=== PATIENT | female | born 1940 | race Caucasian/White ===

== ENCOUNTER 2023-08-24 14:47 | Emergency (ER) | payer OTHER, MEDICARE, SELFPAY ==
[2023-08-24 14:50] VITALS: BP 162/68; PULSE 66; RESP 18; TEMP 36.7; O2SAT 93; BMI 32.9
--- NOTE | 2023-08-24 14:51 | XRR_ITS ---
PROCEDURE INFORMATION: Exam: XR Chest Exam date and time: 08/24/2023 2:54 PM Age: 83 years old Clinical indication: Cough and dyspnea; Additional info: Dyspnea/cough TECHNIQUE: Imaging protocol: Radiologic exam of the chest. Views: 1 view. COMPARISON: CR XR chest 2V* [id number] 12/24/2016 4:32 PM FINDINGS: Lungs: Minimal left lateral basilar pleuroparenchymal opacity. Pleural spaces: See above. No pneumothorax. Heart/Mediastinum: A hiatal hernia is now seen. No cardiomegaly. Bones/joints: Unremarkable. XR/XR chest 1V portable [id number] IMPRESSION: Minimal left lateral basilar pleuroparenchymal opacity.
--- NOTE | 2023-08-24 14:54 | ED_ITS ---
Documented by User: Edson Dominique DO 08/25/23 07:48 HPI - Weakness 2 General: Chief complaint: Weakness Stated complaint: weakness Time Seen by Provider: 08/24/23 14:51 Source: patient Mode of arrival: ambulatory History of Present Illness: 83-year-old female presents emergency ro om via EMS with complaints of generalized weakness. She states that she was playing bridge suddenly had an episode of weakness where she seemed to stare off into space. She thinks it lasted about 5 to 10 minutes she cannot recall what happened on arrival EMS states she was responsive and a GCS of 15 she is awake and alert and oriented now follow simple commands bedside NIH scoring is 0. She does tell me she has had a stroke in the past. She is on clopidogrel. MD Complaint: generalized weakness Onset (ago): minute(s) Relieving factors: none Exacerbating factors: none Associated symptoms: Denies chest pain, chills, confusion, melena, decreased appetite, diaphoresis, dysuria, easy bruising, fever(s), headache(s), myalgias, nausea, rash, short of breath, syncope or vomiting Review of Systems 2 Const: Denies: fever(s), chills or diaphoresis Card: Denies: chest pain or syncope Resp: Denies: dyspnea GI: Denies: abdominal pain, nausea, vomiting or melena : Denies: dysuria, urinary frequency or urinary urgency Musc: Denies: neck pain or back pain Skin/Breast: Denies: rash Neuro: Denies: headache(s) or confusion Zafar/Lymph: Denies: easy bruising Physical Exam 2 Const: COMMON NORMALS: no acute distress GENERAL APPEARANCE: cooperative and comfortable ORIENTATION/CONSCIOUSNESS: Yes awake, Yes oriented to person, Yes oriented to place and Yes oriented to time HENMT: COMMON NORMALS: normocephalic, atraumatic and hearing grossly normal bilaterally HEAD & SCALP: normocephalic and atraumatic Resp: COMMON NORMALS: normal respiratory effort, No retractions, No use of accessory muscles and clear to auscultation bilaterally AUSCULTATION: clear to auscultation bilaterally Cardio: COMMON NORMALS: regular rate, regular rhythm and No murmurs present (Cardio) RATE: regular rate RHYTHM: regular rhythm GI: COMMON NORMALS: Soft to palpation and No hepatosplenomegaly present A USCULTATION: Yes normoactive bowel sounds PALPATION: Yes Soft to palpation, No Tenderness to palpation present (GI), No Guarding due to palpation present (GI) and Yes No hepatosplenomegaly present Extremity: COMMON NORMALS: normal to inspection, capillary refill normal, no clubbing, cyanosis or edema, no calf tenderness and no pedal edema Neuro: SENSORIUM/ORIENTATION: Yes oriented to person, Yes oriented to place and Yes oriented to time Skin: COMMON NORMALS: no rashes or lesions noted GENERAL SKIN EXAM: no rashes or lesions noted Course 2 Vital Signs: Vital signs: Vital Signs Temperature 98.0 F 08/24/23 14:50 Pulse Rate 95 08/24/23 19:58 Respiratory Rate 18 08/24/23 19:58 Blood Pressure 165/83 08/24/23 19:58 Pulse Oximetry 98 08/24/23 19:58 Oxygen Delivery Me thod Room Air 08/24/23 14:50 [facility] - Weakness Medical Decision Making Care signed out to Dr. Babb at change of shift. See final notes for diagnosis and disposition. I have discussed the patient's case with the off going physician <Dr. Dominique > and I have assumed care of the patient. We have discussed the current lab/radiographic results that have been resulted and the pending tests. I have reevaluated the patient I discussed the patient's laboratory findings with her and advised her that I will prescribe antibiotics for her urinary tract infection. And have her follow-up with her primary care provider. Lab Data 08/24/23 15:05 08/24/23 15:05 Radiology Impressions Chest X-Ray 08/24/23 14:51 IMPRESSION: Minimal left lateral basilar pleuroparenchymal opacity. Head CT 08/24/23 15:50 IMPRESSION: 1. No acute intracranial pathology demonstrated by CT. 2. 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 Laboratory Results WBC 6.73 10^3/uL (3.29-11.43) 08/24/23 15:05 RBC 4.31 10^6/uL (3.85-5.65) 08/24/23 15:05 Hgb 12.90 g/dL (11.27-16.99) 08/24/23 15:05 Hct 39.7 % (36-47) 08/24/23 15:05 MCV 92.1 fl (85-98) 08/24/23 15:05 MCH 29.9 pg (27-33) 08/24/23 15:05 MCHC 32.5 g/dL (30-55) 08/24/23 15:05 RDW 13.0 % (12.1-15.1) 08/24/23 15:05 Plt Count 208 10^3/cmm (157-399) 08/24/23 15:05 MPV 9.6 fL (7.4-10.4) 08/24/23 15:05 Neut % (Auto) 58.1 % 08/24/23 15:05 Lymph % (Auto) 28.4 % 08/24/23 15:05 [place] % (Auto) 10.0 % 08/24/23 15:05 Eos % (Auto) 2.8 % 08/24/23 15:05 Baso % (Auto) 0.6 % 08/24/23 15:05 Neut # (Auto) 3.91 10^3/uL (1.8-7.7) 08/24/23 15:05 Lymph # (Auto) 1.9 10^3/uL (0.8-4.8) 08/24/23 15:05 [place] # (Auto) 0.7 10^3/uL (0.2-0.9) 08/24/23 15:05 Eos # (Auto) 0.2 10^3/uL (0.0-0.8) 08/24/23 15:05 Baso # (Auto) 0.0 10^3/uL (0.0-0.1) 08/24/23 15:05 Nucleated RBC % (auto) 0 % 08/24/23 15:05 Nucleated RBCs # 0.0 /100WBC 08/24/23 15:05 Sodium 140 mmol/L (136-145) 08/24/23 15:05 Potassium 4.2 mmol/L (3.5-5.1) 08/24/23 15:05 Chloride 103 mmol/L (98-107) 08/24/23 15:05 Carbon Dioxide 27 mmol/L (22-29) 08/24/23 15:05 Anion Gap 14.2 (5-19) 08/24/23 15:05 BUN 16 mg/dL (8-23) 08/24/23 15:05 Creatinine 0.9 mg/dL (0.5-0.9) 08/24/23 15:05 GFR Calculation Not Reportable 08/24/23 15:05 Glucose 147 mg/dL (65-115) H 08/24/23 15:05 Calculated Osmolality 294 mOsm/kg (285-295) 08/24/23 15:05 Calcium 9.5 mg/dL (8.5-10.5) 08/24/23 15:05 Total Bilirubin 0.4 mg/dL (0.15-1.2) 08/24/23 15:05 AST 20 U/L (0-32) 08/24/23 15:05 ALT 18 U/L (0-33) 08/24/23 15:05 Alkaline Phosphatase 83 U/L (35-105) 08/24/23 15:05 Troponin T Baseline 10 ng/L (0-10) 08/24/23 15:05 Troponin T 120 Minute 8.22 ng/L (0-10) 08/24/23 18:24 Delta Troponin T -1.78 ABS# (0-10) L 08/24/23 18:24 Total Protein 6.7 g/dL (6.6-8.7) 08/24/23 15:05 Albumin 4.0 g/dL (3.5-5.2) 08/24/23 15:05 Globulin 2.7 g/dL (1.3-4.6) 08/24/23 15:05 Urine Color Yellow (Yellow) 08/24/23 15:41 Urine Appearance Cloudy (CLEAR) A 08/24/23 15:41 Urine pH 5 (5-7) 08/24/23 15:41 Ur Specific Vil[place] 1.025 (1.005-1.030) 08/24/23 15:41 Urine Protein Neg (Negative) 08/24/23 15:41 Urine Glucose (UA) Norm (Normal) 08/24/23 15:41 Urine Ketones Negative (Negative) 08/24/23 15:41 Urine Blood 2+ (Negative) H 08/24/23 15:41 Urine Nitrate Negative (Negative) 08/24/23 15:41 Urine Bilirubin Neg (Negative) 08/24/23 15:41 Urine Urobilinogen 1 mg/dL (Negative) H 08/24/23 15:41 Ur Leukocyte Esterase 2+ (Negative) H 08/24/23 15:41 Urine RBC 0-4 /hpf (0-2) H 08/24/23 15:41 Urine WBC 25-40 /hpf (0-5) H 08/24/23 15:41 Ur Squamous Epith Cells 5-10 /hpf (0-5) H 08/24/23 15:41 Ur Transition Epith Cell 0-4 /hpf 08/24/23 15:41 Amorphous Sediment Not Reportable 08/24/23 15:41 Urine Bacteria 1+ /hpf (NONE) H 08/24/23 15:41 Hyaline Casts 15-25 /lpf H 08/24/23 15:41 Urine Mucus 2+ /hpf 08/24/23 15:41 Discharge Plan Discharge Patient Disposition: Home Clinical Impression: Acute UTI, Pre-syncope Condition: Stable Prescriptions: New Macrobid 100 mg capsule 100 mg PO Q12H 7 Days Qty: 14 0RF Rx Instructions: must administer with a meal/food No Action atorvastatin 80 mg tablet 80 mg PO QPM carvedilol 6.25 mg tablet 6.25 mg PO BID trazodone 50 mg tablet 50 mg PO BEDTIME clopidogrel 75 mg tablet 75 mg PO DAILY Aspir-81 81 mg Tablet,Delayed Release (Dr/Ec) 81 mg PO DAILY Nitrostat 0.4 mg Tablet, Sublingual 0.4 mg SUBLINGUAL Q5M PRN (Reason: Chest Pain) Rx Instructions: do not exceed 3 doses per episode omeprazole 20 mg Capsule,Delayed Release(Dr/Ec) 20 mg PO DAILY ramipril 5 mg capsule 5 mg PO DAILY Vitamin D3 25 mcg (1,000 unit) Capsule 25 mcg PO DAILY Zyrtec 10 mg Capsule 10 mg PO DAILY Fish Oil 100-160-1,000 mg Capsule 1 cap PO DAILY calcium carb,glucon-vitamin D2 250 mg-2.5 mcg (100 unit) Tablet 1 tab PO DAILY Discharge Orders: Discharge ED (Routine); Ordered 08/24/23 Ordered By: Velasquez Babb Referrals: Kasi Anaya, [employer]ZING MACHINE AND DRIER OPERATOR-C [Nurse Practitioner] - Discharge Diet: Usual diet Discharge Activity: Resume usual activity Patient Instructions: Opioid Safety, Pain Management Activity Restrictions/Additional Instructions: Activity Restrictions/Additional Instructions: Thank you for choosing [facility] for your healthcare needs today. Please realize that you were seen in the Emergency Department and that we are providing you with an emergency medical screening exam and this may not be a complete and all inclusive of all the testing and or medical work-up that you may need to determine your ailment or severity of your illness. It is very important that you follow-up as instructed with your Primary care provider or Specialist for additional evaluation and to discuss your medical treatment plan. You may return to the Emergency Department should you have concerns or if your condition changes or worsens in any way. Coding Level of Care Code ED Color Making Supervisor for Hilda Jana NIH stroke score NIHSS Level Of Consciousness - 1a: 0 Level Of Consciousness Questions - 1b: Both Correct Level Of Consciousness Commands - 1c: Both Correct Best Gaze - 2: Normal Visual Sinclair - 3: No Visual Loss Facial Palsy - 4: Normal Motor Arm Right - 5: No Drift Motor Arm Left - 5: No Drift Motor Leg Right - 6: No Drift Motor Leg Left - 6: No Drift Limb Ataxia - 7: Absent Sensory - 8: Normal Best Language - 9: No Aphasia Dysarthia - 10: Normal Extinction And Inattention - 11: 0 Score Total Score: 0 Documented by User: Velasquez Babb MD 08/24/23 19:24 HPI - Weakness 2 General: Chief complaint: Weakness Stated complaint: weakness Time Seen by Provider: 08/24/23 14:51 Course 2 Vital Signs: Vital signs: Vital Signs Temperature 98.0 F 08/24/23 14:50 Pulse Rate 95 08/24/23 19:58 Respiratory Rate 18 08/24/23 19:58 Blood Pressure 165/83 08/24/23 19:58 Pulse Oximetry 98 08/24/23 19:58 Oxygen Delivery Me thod Room Air 08/24/23 14:50 MDM - Weakness Medical Decision Making I have discussed the patient's case with the off going physician <Dr. Dominique > and I have assumed care of the patient. We have discussed the current lab/radiographic results that have been resulted and the pending tests. I have reevaluated the patient I discussed the patient's laboratory findings with her and advised her that I will prescribe antibiotics for her urinary tract infection. And have her follow-up with her primary care provider. Medical Records I reviewed the patient's medical records. Lab Data I reviewed the patient's lab results. 08/24/23 15:05 08/24/23 15:05 Radiology Impressions Chest X-Ray 08/24/23 14:51 IMPRESSION: Minimal left lateral basilar pleuroparenchymal opacity. Head CT 08/24/23 15:50 IMPRESSION: 1. No acute intracranial pathology demonstrated by CT. 2. 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 Laboratory Results WBC 6.73 10^3/uL (3.29-11.43) 08/24/23 15:05 RBC 4.31 10^6/uL (3.85-5.65) 08/24/23 15:05 Hgb 12.90 g/dL (11.27-16.99) 08/24/23 15:05 Hct 39.7 % (36-47) 08/24/23 15:05 MCV 92.1 fl (85-98) 08/24/23 15:05 MCH 29.9 pg (27-33) 08/24/23 15:05 MCHC 32.5 g/dL (30-55) 08/24/23 15:05 RDW 13.0 % (12.1-15.1) 08/24/23 15:05 Plt Count 208 10^3/cmm (157-399) 08/24/23 15:05 MPV 9.6 fL (7.4-10.4) 08/24/23 15:05 Neut % (Auto) 58.1 % 08/24/23 15:05 Lymph % (Auto) 28.4 % 08/24/23 15:05 [place] % (Auto) 10.0 % 08/24/23 15:05 Eos % (Auto) 2.8 % 08/24/23 15:05 Baso % (Auto) 0.6 % 08/24/23 15:05 Neut # (Auto) 3.91 10^3/uL (1.8-7.7) 08/24/23 15:05 Lymph # (Auto) 1.9 10^3/uL (0.8-4.8) 08/24/23 15:05 [place] # (Auto) 0.7 10^3/uL (0.2-0.9) 08/24/23 15:05 Eos # (Auto) 0.2 10^3/uL (0.0-0.8) 08/24/23 15:05 Baso # (Auto) 0.0 10^3/uL (0.0-0.1) 08/24/23 15:05 Nucleated RBC % (auto) 0 % 08/24/23 15:05 Nucleated RBCs # 0.0 /100WBC 08/24/23 15:05 Sodium 140 mmol/L (136-145) 08/24/23 15:05 Potassium 4.2 mmol/L (3.5-5.1) 08/24/23 15:05 Chloride 103 mmol/L (98-107) 08/24/23 15:05 Carbon Dioxide 27 mmol/L (22-29) 08/24/23 15:05 Anion Gap 14.2 (5-19) 08/24/23 15:05 BUN 16 mg/dL (8-23) 08/24/23 15:05 Creatinine 0.9 mg/dL (0.5-0.9) 08/24/23 15:05 GFR Calculation Not Reportable 08/24/23 15:05 Glucose 147 mg/dL (65-115) H 08/24/23 15:05 Calculated Osmolality 294 mOsm/kg (285-295) 08/24/23 15:05 Calcium 9.5 mg/dL (8.5-10.5) 08/24/23 15:05 Total Bilirubin 0.4 mg/dL (0.15-1.2) 08/24/23 15:05 AST 20 U/L (0-32) 08/24/23 15:05 ALT 18 U/L (0-33) 08/24/23 15:05 Alkaline Phosphatase 83 U/L (35-105) 08/24/23 15:05 Troponin T Baseline 10 ng/L (0-10) 08/24/23 15:05 Troponin T 120 Minute 8.22 ng/L (0-10) 08/24/23 18:24 Delta Troponin T -1.78 ABS# (0-10) L 08/24/23 18:24 Total Protein 6.7 g/dL (6.6-8.7) 08/24/23 15:05 Albumin 4.0 g/dL (3.5-5.2) 08/24/23 15:05 Globulin 2.7 g/dL (1.3-4.6) 08/24/23 15:05 Urine Color Yellow (Yellow) 08/24/23 15:41 Urine Appearance Cloudy (CLEAR) A 08/24/23 15:41 Urine pH 5 (5-7) 08/24/23 15:41 Ur Specific [place] 1.025 (1.005-1.030) 08/24/23 15:41 Urine Protein Neg (Negative) 08/24/23 15:41 Urine Glucose (UA) Norm (Normal) 08/24/23 15:41 Urine Ketones Negative (Negative) 08/24/23 15:41 Urine Blood 2+ (Negative) H 08/24/23 15:41 Urine Nitrate Negative (Negative) 08/24/23 15:41 Urine Bilirubin Neg (Negative) 08/24/23 15:41 Urine Urobilinogen 1 mg/dL (Negative) H 08/24/23 15:41 Ur Leukocyte Esterase 2+ (Negative) H 08/24/23 15:41 Urine RBC 0-4 /hpf (0-2) H 08/24/23 15:41 Urine WBC 25-40 /hpf (0-5) H 08/24/23 15:41 Ur Squamous Epith Cells 5-10 /hpf (0-5) H 08/24/23 15:41 Ur Transition Epith Cell 0-4 /hpf 08/24/23 15:41 Amorphous Sediment Not Reportable 08/24/23 15:41 Urine Bacteria 1+ /hpf (NONE) H 08/24/23 15:41 Hyaline Casts 15-25 /lpf H 08/24/23 15:41 Urine Mucus 2+ /hpf 08/24/23 15:41 All radiology interpretation(s) finalized by discharge Discharge Plan Discharge Patient Disposition: Home Clinical Impression: Acute UTI, Pre-syncope Condition: Stable Prescriptions: New Macrobid 100 mg capsule 100 mg PO Q12H 7 Days Qty: 14 0RF Rx Instructions: must administer with a meal/food No Action atorvastatin 80 mg tablet 80 mg PO QPM carvedilol 6.25 mg tablet 6.25 mg PO BID trazodone 50 mg tablet 50 mg PO BEDTIME clopidogrel 75 mg tablet 75 mg PO DAILY Aspir-81 81 mg Tablet,Delayed Release (Dr/Ec) 81 mg PO DAILY Nitrostat 0.4 mg Tablet, Sublingual 0.4 mg SUBLINGUAL Q5M PRN (Reason: Chest Pain) Rx Instructions: do not exceed 3 doses per episode omeprazole 20 mg Capsule,Delayed Release(Dr/Ec) 20 mg PO DAILY ramipril 5 mg capsule 5 mg PO DAILY Vitamin D3 25 mcg (1,000 unit) Capsule 25 mcg PO DAILY Zyrtec 10 mg Capsule 10 mg PO DAILY Fish Oil 100-160-1,000 mg Capsule 1 cap PO DAILY calcium carb,glucon-vitamin D2 250 mg-2.5 mcg (100 unit) Tablet 1 tab PO DAILY Discharge Orders: Discharge ED (Routine); Ordered 08/24/23 Ordered By: Velasquez Babb Referrals: Kasi Anaya, SIZING MACHINE AND DRIER OPERATOR-C [Nurse Practitioner] - Discharge Diet: Usual diet Discharge Activity: Resume usual activity Patient Instructions: Opioid Safety, Pain Management Activity Restrictions/Additional Instructions: Activity Restrictions/Additional Instructions: Thank you for choosing [facility] for your healthcare needs today. Please realize that you were seen in the Emergency Department and that we are providing you with an emergency medical screening exam and this may not be a complete and all inclusive of all the testing and or medical work-up that you may need to determine your ailment or severity of your illness. It is very important that you follow-up as instructed with your Primary care provider or Specialist for additional evaluation and to discuss your medical treatment plan. You may return to the Emergency Department should you have concerns or if your condition changes or worsens in any way. Coding Level of Care Code ED Color Making Supervisor for Hilda Bates NIH stroke score Score Total Score: 0
--- NOTE | 2023-08-24 15:08 | ECG_ITS ---
[facility] Test Date: 2023-08-24 Pat Name: Angy Rivers Department: Room: Gender: Female Director Of Primary: : 1940 Requested By: Edson Gonzalez Order Number: [id number] Hanane MD: Chico Lloyd M.D. Measurements Intervals [place] Rate: 65 P: 40 [place]: 204 QRS: 6 QRSD: 73 T: 70 QT: 379 QTc: 395 Interpretive Statements SINUS RHYTHM ANTEROSEPTAL MYOCARDIAL INFARCTION , OF INDETERMINATE AGE [40+ ms Q WAVE IN V1-V4] Compared to ECG 12/24/2016 23:33:23 No significant changes Electronically Signed On 08-24-2023 18:42:59 CDT by Chico Lloyd M.D. [id number]
[2023-08-24 15:10] LABS: Basophils % 0.6 %; Eosinophils # 0.2 10^3/uL (0.0-0.8); Eosinophils % 2.8 %; Hematocrit 39.7 % (36-47); Lymphocytes # 1.9 10^3/uL (0.8-4.8); Lymphocytes % 28.4 %; Mean Corpuscular HGB Conc 32.5 g/dL (30-55); Mean Corpuscular Hemoglobin 29.9 pg (27-33); Mean Corpuscular Volume 92.1 fl (85-98); Mean Platelet Volume 9.6 fL (7.4-10.4); Monocytes # 0.7 10^3/uL (0.2-0.9); Neutrophils # 3.91 10^3/uL (1.8-7.7); Neutrophils % 58.1 %; Nucleated Red Blood Cells % 0 %; Platelet Count 208 10^3/cmm (157-399); Red Blood Count 4.31 10^6/uL (3.85-5.65); White Blood Count 6.73 10^3/uL (3.29-11.43)
[2023-08-24 15:27] VITALS: BP 162/68; PULSE 69
[2023-08-24 15:39] LABS: Troponin(5th) Baseline 10 ng/L (0-10)
[2023-08-24 15:42] LABS: Alanine Aminotransferase 18 U/L (0-33); Alkaline Phosphatase 83 U/L (35-105); Anion Gap 14.2 (5-19); Aspartate Amino Transferase 20 U/L (0-32); Blood Urea Nitrogen 16 mg/dL (8-23); Calcium 9.5 mg/dL (8.5-10.5); Carbon Dioxide 27 mmol/L (22-29); Chloride 103 mmol/L (98-107); Creatinine Clr Calc Pharmacy 45.2485; Globulin 2.7 g/dL (1.3-4.6); Glucose 147 mg/dL (65-115); Osmolality Calculated 294 mOsm/kg (285-295); Potassium 4.2 mmol/L (3.5-5.1); Sodium 140 mmol/L (136-145); Total Bilirubin 0.4 mg/dL (0.15-1.2); Total Protein 6.7 g/dL (6.6-8.7)
--- NOTE | 2023-08-24 15:50 | CTR_ITS ---
PROCEDURE INFORMATION: Exam: CT Head Without Contrast Exam date and time: 08/24/2023 4:04 PM Age: 83 years old Clinical indication: Altered mental status/memory loss; Additional info: AMS TECHNIQUE: Imaging protocol: Computed tomography of the head without contrast. Radiation optimization: All CT scans at this facility use at least one of these dose optimization techniques: automated exposure control; mA and/or kV adjustment per patient size (includes targeted exams where dose is matched to clinical indication); or iterative reconstruction. COMPARISON: CT head wo con* [id number] 12/24/2016 4:58 PM RADIATION DOSE METRICS: Total DLP (mGy-cm): 1072.99 FINDINGS: Brain: Chronic encephalomalacia left frontal lobe. There are global involutional changes of the brain which are in keeping with the patient's age. Periventricular hypodensities are nonspecific but most likely reflect chronic microvascular ischemic disease. No acute intracranial hemorrhage, mass effect or midline shift. No abnormal extra-axial fluid collections are identified. Cerebral ventricles: Ex vacuo enlargement of the frontal horn left lateral ventricle. Paranasal sinuses: There is mild sinus mucosal disease, with no air-fluid level identified. Mastoid air cells: There is no mastoid effusion detected. Bones/joints: Unremarkable. No acute fracture. Soft tissues: Unremarkable. Vasculature: Atherosclerotic vascular disease is noted at the level of the skull base. CT/CT head wo con* [id number] IMPRESSION: 1. No acute intracranial pathology demonstrated by CT. 2. 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
[2023-08-24 16:12] LABS: Urine Appearance Cloudy (CLEAR); Urine Color Yellow (Yellow)
[2023-08-24 16:13] LABS: Add Urine Microscopic? YES; Bilirubin Urine Neg (Negative); Blood Urine 2+ (Negative); Glucose Urine UA Norm (Normal); Ketones Urine Negative (Negative); Leukocyte Esterase Urine 2+ (Negative); Nitrate Urine Negative (Negative); Protein Urine Neg (Negative); Specific Gravity, Urine 1.025 (1.005-1.030); Urobilinogen Urine 1 mg/dL (Negative); pH Urine 5 (5-7)
[2023-08-24 16:18] LABS: Bacteria Urine 1+ /hpf; Mucus Urine 2+ /hpf; RBC Urine 0-4 /hpf (0-2); Transitional Epi Cells Urine 0-4 /hpf; WBC Urine 25-40 /hpf (0-5)
[2023-08-24 16:19] LABS: Add Urine Culture? Yes; Hyaline Casts Urine 15-25 /lpf
--- NOTE | 2023-08-24 17:33 | ECG_ITS ---
[facility] Test Date: 2023-08-24 Pat Name: Angy Rivers Department: Room: Gender: Female Chocolatier: : 1940 Requested By: Edson Gonzalez Order Number: [id number] Hanane MD: Chico Lloyd M.D. Measurements Intervals [place] Rate: 69 P: 29 TN: 208 QRS: -9 QRSD: 83 T: 74 QT: 386 QTc: 415 Interpretive Statements SINUS RHYTHM POSSIBLE ANTERIOR MYOCARDIAL INFARCTION , OF INDETERMINATE AGE [30 ms Q WAVE IN V3/V4, OR R < 0.2 mV IN V4] INFERIOR MYOCARDIAL INFARCTION , PROBABLY OLD [40+ ms Q WAVE AND/OR ST/T ABNORMALITY IN II/aVF] Compared to ECG 08/24/2023 15:08:27 No significant changes Electronically Signed On 08-24-2023 18:49:54 CDT by Chico Lloyd M.D. [id number]
[2023-08-24 18:41] VITALS: BP 153/74; PULSE 65
[2023-08-24] MEDS: cefTRIAXone 1,000 MG in sodium chloride 0.9% (plus) 50 ML 100 MG IV (18:48)
[2023-08-24 19:07] LABS: Troponin 5 2HR 8.22 ng/L (0-10)
[2023-08-24 19:09] VITALS: BP 146/73; PULSE 66; RESP 18; O2SAT 97
[2023-08-24 19:13] LABS: Troponin 5 2HR Delta -1.78 ABS# (0-10)
[2023-08-24 19:58] VITALS: BP 165/83; PULSE 95; RESP 18; O2SAT 98
== END 2023-08-24 19:59 | disposition home or self-care (01) ==
PROVIDERS: Family Medicine; Emergency Provider Internal Medicine
DX: R55 Syncope and collapse (principal); N39.0 Urinary tract infection, site not specified; Z79.02 Long term (current) use of antithrombotics/antiplatelets; Z79.82 Long term (current) use of aspirin
CPT/HCPCS: 36415; 70450; 71045; 80053; 81001; 84484; 85025; 87040; 87086; 93005; 96365; 99285; J0696

== ENCOUNTER 2025-03-06 14:15 | Emergency (ER) | payer MEDICARE, OTHER, SELFPAY ==
--- NOTE | 2025-03-06 14:17 | ECG_ITS ---
[facility] Test Date: 2025-03-06 Pat Name: Angy Rivers Department: Room: Gender: Female Electronics Maintenance Technician: : 1940 Requested By: Kendall Ferrari Order Number: [id number] Hanane MD: Chico Lloyd M.D. Measurements Intervals [place] Rate: 73 P: 59 SD: 201 QRS: 8 QRSD: 82 T: 84 QT: 374 QTc: 413 Interpretive Statements SINUS RHYTHM ANTEROSEPTAL MYOCARDIAL INFARCTION , OF INDETERMINATE AGE [40+ ms Q WAVE IN V1-V4] Compared to ECG 08/24/2023 17:33:26 No significant changes Electronically Signed On 03-06-2025 16:52:14 CDT by Chico Lloyd M.D. [id number]
[2025-03-06 14:19] VITALS: BP 137/77; PULSE 76; RESP 16; TEMP 36.8; O2SAT 100; BMI 28.3
--- NOTE | 2025-03-06 14:27 | W.ED.SYNCOPE ---
HPI - Syncope General: Chief Complaint: Syncope Stated Complaint: Syncope Time Seen by Provider: 03/06/25 14:19 Source: patient and EMS Mode of arrival: EMS Limitations: no limitations History of Present Illness: 85-year-old female states she was playing cards today and had a brief syncopal episode. She denies any headache or chest pain before or after the event. States she feels at her baseline and feels completely normal currently has had these events in the past she denies any fevers or recent illnesses or vomiting. Related Data Home Medications ?Medication ?Instructions ?Recorded ?Confirmed aspirin 81 mg tablet,delayed 81 mg PO DAILY 08/24/23 08/24/23 release atorvastatin 80 mg tablet 80 mg PO QPM 08/24/23 08/24/23 calcium 250 mg 1 tab PO DAILY 08/24/23 08/24/23 (carbonate,gluconate)-vit D2 2.5 mcg (100 unit) tablet carvedilol 6.25 mg tablet 6.25 mg PO BID 08/24/23 08/24/23 cetirizine 10 mg capsule (Zyrtec) 10 mg PO DAILY 08/24/23 08/24/23 cholecalciferol (vitamin D3) 25 25 mcg PO DAILY 08/24/23 08/24/23 mcg (1,000 unit) capsule (Vitamin D3) clopidogrel 75 mg tablet 75 mg PO DAILY 08/24/23 08/24/23 nitroglycerin 0.4 mg sublingual 0.4 mg sublingual Q5M PRN Chest 08/24/23 08/24/23 tablet (Nitrostat) Pain omega 2-mik-kyb-fish oil 100 1 cap PO DAILY 08/24/23 08/24/23 mg-160 mg-1,000 mg capsule (Fish Oil) omeprazole 20 mg capsule,delayed 20 mg PO DAILY 08/24/23 08/24/23 release ramipril 5 mg capsule 5 mg PO DAILY 08/24/23 08/24/23 trazodone 50 mg tablet 50 mg PO BEDTIME 08/24/23 08/24/23 Previous Rx's ?Medication ?Instructions ?Recorded cephalexin 500 mg capsule 500 mg PO TID 7 days #21 caps 03/06/25 Allergies Allergy/AdvReac Type Severity Reaction Status Date / Time No Known Allergies Allergy Verified 08/24/23 14:56 Review of Systems Card: Reports: syncope Physical Exam Const: COMMON NORMALS: no acute distress, patient oriented x3 and healthy appearing HENMT: COMMON NORMALS: normocephalic and atraumatic HEAD & SCALP: normocephalic and atraumatic Eye: COMMON NORMALS: Equal, round and reactive pupils present and EOMs intact bilaterally PUPIL: Yes Equal, round and reactive pupils present Neck/C-Spine: COMMON NORMALS: full ROM and supple Chest: COMMONS NORMALS: normal inspection of the chest and normal palpation of entire chest wall Resp: COMMON NORMALS: normal respiratory effort, No retractions, No use of accessory muscles and clear to auscultation bilaterally AUSCULTATION: clear to auscultation bilaterally Cardio: COMMON NORMALS: regular rate, regular rhythm and No murmurs present (Cardio) RATE: regular rate RHYTHM: regular rhythm GI: COMMON NORMALS: Normal to inspection, nondistended, normoactive bowel sounds present, Soft to palpation, non-tender and no masses PALPATION: Yes Soft to palpation Extremity: COMMON NORMALS: normal to inspection and full ROM Neuro: COMMON NORMALS: patient oriented x3, moves all extremities and no focal motor deficits Psych: COMMON NORMALS: mental status grossly normal, Normal thought process present and cooperative THOUGHT PROCESS: Normal thought process present Skin: COMMON NORMALS: no rashes or lesions noted and no wounds GENERAL SKIN EXAM: no rashes or lesions noted Course Vital Signs: Vital signs: Vital Signs Temperature 98.3 F 03/06/25 14:19 Pulse Rate 70 03/06/25 16:02 Respiratory Rate 16 03/06/25 16:02 Blood Pressure 137/65 03/06/25 16:02 Pulse Oximetry 98 03/06/25 16:02 Oxygen Delivery Me thod Room Air 03/06/25 14:19 MDM - Syncope Medical Decision Making Patient presents here with a syncopal event differential includes arrhythmia, subarachnoid hemorrhage, pulm emboli. Patient has no signs of these she has no headache EKG and rhythm here have been normal. She has no chest pain or shortness of breath no signs of PE. This is likely a vagal response she has had these in the past. Patient's blood work here shows no acute abnormalities she is not anemic. She does have a UTI and we will start her on Keflex for this. EKG here shows normal sinus rhythm heart rate [address] elevation QRS 82 QTc 400. I did discuss the findings with her and her son she has a follow-up with her physician on Tuesday. She is stable for discharge return if worsening they understand agree to plan Medical Records I reviewed the patient's medical records. Lab Data I reviewed the patient's lab results. 03/06/25 15:04 03/06/25 15:04 Laboratory Results WBC 8.05 10^3/uL (3.29-11.43) 03/06/25 15:04 RBC 4.41 10^6/uL (3.85-5.65) 03/06/25 15:04 Hgb 12.40 g/dL (11.27-16.99) 03/06/25 15:04 Hct 38.6 % (36-47) 03/06/25 15:04 MCV 87.5 fl (85-98) 03/06/25 15:04 MCH 28.1 pg (27-33) 03/06/25 15:04 MCHC 32.1 g/dL (30-55) 03/06/25 15:04 RDW 13.6 % (12.1-15.1) 03/06/25 15:04 Plt Count 188 10^3/cmm (157-399) 03/06/25 15:04 MPV 9.0 fL (7.4-10.4) 03/06/25 15:04 Neut % (Auto) 77.1 % 03/06/25 15:04 Lymph % (Auto) 12.9 % 03/06/25 15:04 [place] % (Auto) 7.3 % 03/06/25 15:04 Eos % (Auto) 1.9 % 03/06/25 15:04 Baso % (Auto) 0.4 % 03/06/25 15:04 Neut # (Auto) 6.21 10^3/uL (1.8-7.7) 03/06/25 15:04 Lymph # (Auto) 1.0 10^3/uL (0.8-4.8) 03/06/25 15:04 [place] # (Auto) 0.6 10^3/uL (0.2-0.9) 03/06/25 15:04 Eos # (Auto) 0.2 10^3/uL (0.0-0.8) 03/06/25 15:04 Baso # (Auto) 0.0 10^3/uL (0.0-0.1) 03/06/25 15:04 Nucleated RBC % (auto) 0 % 03/06/25 15:04 Nucleated RBCs # 0.0 /100WBC 03/06/25 15:04 Sodium 138 mmol/L (136-145) 03/06/25 15:04 Potassium 4.1 mmol/L (3.5-5.1) 03/06/25 15:04 Chloride 100 mmol/L (98-107) 03/06/25 15:04 Carbon Dioxide 25 mmol/L (22-29) 03/06/25 15:04 Anion Gap 17.1 (5-19) 03/06/25 15:04 BUN 15 mg/dL (8-23) 03/06/25 15:04 Creatinine 0.8 mg/dL (0.5-0.9) 03/06/25 15:04 GFR Calculation Not Reportable 03/06/25 15:04 Glucose 141 mg/dL (65-115) H 03/06/25 15:04 Calculated Osmolality 289 mOsm/kg (285-295) 03/06/25 15:04 Calcium 9.6 mg/dL (8.5-10.5) 03/06/25 15:04 Total Bilirubin 0.5 mg/dL (0.15-1.2) 03/06/25 15:04 AST 16 U/L (0-32) 03/06/25 15:04 ALT 13 U/L (0-33) 03/06/25 15:04 Alkaline Phosphatase 95 U/L (35-105) 03/06/25 15:04 Total Protein 7.3 g/dL (6.6-8.7) 03/06/25 15:04 Albumin 4.0 g/dL (3.5-5.2) 03/06/25 15:04 Globulin 3.3 g/dL (1.3-4.6) 03/06/25 15:04 Urine Color Dark yellow (Yellow) A 03/06/25 14:56 Urine Appearance Cloudy (CLEAR) A 03/06/25 14:56 Urine pH 6.0 (5-7) 03/06/25 14:56 Ur Specific [place] 1.029 (1.005-1.030) 03/06/25 14:56 Urine Protein 1+ (Negative) A 03/06/25 14:56 Urine Glucose (UA) Negative (Normal) 03/06/25 14:56 Urine Ketones Trace (Negative) 03/06/25 14:56 Urine Blood 1+ (Negative) A 03/06/25 14:56 Urine Nitrate Negative (Negative) 03/06/25 14:56 Urine Bilirubin Negative (Negative) 03/06/25 14:56 Urine Urobilinogen 1.0 mg/dL (Negative) 03/06/25 14:56 Ur Leukocyte Esterase 2+ (Negative) A 03/06/25 14:56 Urine RBC 21-50 /hpf (0-2) H 03/06/25 14:56 Urine WBC 51-100 /hpf (0-5) H 03/06/25 14:56 Ur Squamous Epith Cells 6-10 /hpf (0-5) 03/06/25 14:56 Amorphous Sediment Not Reportable 03/06/25 14:56 Urine Bacteria None seen /hpf (NONE) 03/06/25 14:56 Hyaline Casts 20.27 /lpf 03/06/25 14:56 All radiology interpretation(s) finalized by discharge EKG Data EKG 1: I personally reviewed and interpreted this EKG as follows: EKG interpretation date: 03/06/25 EKG interpretation time: 14:17 Interpretation: nsr hr [address] elevation qrs 82 qtc 400 Discharge Plan Discharge Patient Disposition: Home Clinical Impression: Syncope Qualifiers: Syncope type: unspecified Qualified Code(s): R55 - Syncope and collapse Acute cystitis Qualifiers: Hematuria presence: without hematuria Qualified Code(s): N30.00 - Acute cystitis without hematuria Condition: Stable Prescriptions: New cephalexin 500 mg capsule 500 mg PO TID 7 Days Qty: 21 0RF No Action atorvastatin 80 mg tablet 80 mg PO QPM carvedilol 6.25 mg tablet 6.25 mg PO BID trazodone 50 mg tablet 50 mg PO BEDTIME clopidogrel 75 mg tablet 75 mg PO DAILY Aspir-81 81 mg Tablet,Delayed Release (Dr/Ec) 81 mg PO DAILY Nitrostat 0.4 mg Tablet, Sublingual 0.4 mg SUBLINGUAL Q5M PRN (Reason: Chest Pain) Rx Instructions: do not exceed 3 doses per episode omeprazole 20 mg Capsule,Delayed Release(Dr/Ec) 20 mg PO DAILY ramipril 5 mg capsule 5 mg PO DAILY Vitamin D3 25 mcg (1,000 unit) Capsule 25 mcg PO DAILY Zyrtec 10 mg Capsule 10 mg PO DAILY Fish Oil 100-160-1,000 mg Capsule 1 cap PO DAILY calcium carb,glucon-vitamin D2 250 mg-2.5 mcg (100 unit) Tablet 1 tab PO DAILY Discharge Orders: Discharge ED (Routine); Ordered 03/06/25 Ordered By: Kendall Ferrari Discharge Diet: Advance as tolerated Discharge Activity: Resume usual activity Patient Instructions: Urinary Tract Infection in Women (ED), Syncope (ED) Print Language: Czech Coding Level of Care Code ED [employer] for Hilda Bates
[2025-03-06 15:08] LABS: Glucose Urine UA Negative (Normal); Nitrate Urine Negative (Negative); Specific Gravity, Urine 1.029 (1.005-1.030)
[2025-03-06 15:13] LABS: Add Urine Microscopic? YES
[2025-03-06 15:13] LABS: Hematocrit 38.6 % (36-47); Hemoglobin 12.40 g/dL (11.27-16.99); Mean Corpuscular HGB Conc 32.1 g/dL (30-55); Mean Corpuscular Hemoglobin 28.1 pg (27-33); Mean Corpuscular Volume 87.5 fl (85-98); Nucleated Red Blood Cells % 0 %; Platelet Count 188 10^3/cmm (157-399); Red Blood Count 4.41 10^6/uL (3.85-5.65); White Blood Count 8.05 10^3/uL (3.29-11.43)
[2025-03-06 15:28] LABS: Alanine Aminotransferase 13 U/L (0-33); Albumin Level 4.0 g/dL (3.5-5.2); Alkaline Phosphatase 95 U/L (35-105); Anion Gap 17.1 (5-19); Aspartate Amino Transferase 16 U/L (0-32); Blood Urea Nitrogen 15 mg/dL (8-23); Calcium 9.6 mg/dL (8.5-10.5); Carbon Dioxide 25 mmol/L (22-29); Chloride 100 mmol/L (98-107); Creatinine Clr Calc Pharmacy 47.2947; Globulin 3.3 g/dL (1.3-4.6); Glucose 141 mg/dL (65-115); Osmolality Calculated 289 mOsm/kg (285-295); Potassium 4.1 mmol/L (3.5-5.1); Sodium 138 mmol/L (136-145); Total Protein 7.3 g/dL (6.6-8.7)
[2025-03-06 15:48] VITALS: BP 137/65; PULSE 73; O2SAT 93
[2025-03-06 16:02] VITALS: BP 137/65; PULSE 70; RESP 16; O2SAT 98
== END 2025-03-06 16:02 | disposition home or self-care (01) ==
PROVIDERS: Emergency Provider Emergency Medicine
DX: R55 Syncope and collapse (principal); N30.00 Acute cystitis without hematuria; Z79.02 Long term (current) use of antithrombotics/antiplatelets; Z79.82 Long term (current) use of aspirin
CPT/HCPCS: 36415; 80053; 81001; 85025; 87086; 93005; 99284